=== PATIENT | female | born 1970 | race African-American/Black ===

== ENCOUNTER 2017-08-26 19:44 | Emergency (ER) | payer MEDICAID, OTHER ==
[~2017-08-26] VITALS: Ht 175.3 cm; Wt 163.3 kg
[2017-08-26 20:16] LABS: Urine RBC None Seen /hpf (0 - 4)
[2017-08-26 20:31] LABS: Urine Bilirubin Negative (Negative); Urine Blood Negative /uL (Negative); Urine Color Yellow (Yellow); Urine Glucose Normal (Normal); Urine Ketone Negative (Negative); Urine Mucus FEW (None Seen); Urine Nitrite Negative (Negative); Urine Squamous Epithelial Cell FEW /hpf (<5)
[2017-08-26 20:55] LABS: Basophils # (auto) 0.1 uL; Eosinophils # (auto) 0.1 uL; Hemoglobin 9.3 g/dL (12.2-16.2); Monocytes # (auto) 0.7 uL; White Blood Cell 6.5 10^3/uL (4.4-10.8)
[2017-08-26 20:57] LABS: Basophils % (auto) 1.6 % (0.0-2.0); Eosinophils % (auto) 2.2 % (0.0-7.0); Hematocrit 30.3 % (36.0-46.0); Lymphocytes # (auto) 2.6 uL; Lymphocytes % (auto) 40.3 % (10.0-50.0); Mean Corpuscular Hemoglobin 21.9 pg (28.0-32.0); Mean Corpuscular Hgb Conc. 30.6 g/dL (32.0-36.0); Mean Corpuscular Volume 71.6 fL (80.0-100.0); Monocytes % (auto) 10.4 % (0.0-12.0); Neutrophils # (auto) 2.9 uL; Neutrophils % (auto) 45.5 % (37.0-80.0); Platelet Count (auto) 350 10^3/uL (140-450); Red Cell Distribution Width 17.7 % (11.8-14.3)
[2017-08-26 21:09] LABS: Albumin 3.7 g/dL (3.4-5.0); Anion Gap 9 (5-15); Aspartate Aminotransferase 16 U/L (15-37); BUN/Creatinine Ratio 9.9; Blood Urea Nitrogen 7 mg/dL (7-18); Calcium 8.6 mg/dL (8.5-10.1); Carbon Dioxide 26 mmol/L (21-32); Chloride 110 mmol/L (98-107); GFR African American 113 mL/min; GFR Non-African American 93 mL/min; Glucose 86 mg/dL (74-106); INR 1.05 (0.9-1.15); Magnesium 2.2 mg/dL (1.6-2.6); Partial Thromboplastin Time 24.5 sec (22.64-33.71); Potassium 3.6 mmol/L (3.5-5.1); Prothrombin Time 11.4 sec (9.37-12.3); Sodium 145 mmol/L (136-145)
[2017-08-26 21:14] LABS: Alkaline Phosphatase 55 U/L (45-117); Bilirubin, Total 0.3 mg/dL (0.2-1.0); Total Protein 7.8 g/dL (6.4-8.2)
[2017-08-27 00:39] VITALS: BP 132/83
== END 2017-08-27 01:15 | disposition home or self-care (01) ==
LOC: ER 19:44
DX: R60.0 Localized edema (principal); Z90.49 Acquired absence of other specified parts of digestive tract; R00.2 Palpitations
CPT/HCPCS: 36415; 71010; 80053; 80307; 81001; 81025; 83735; 84484; 85025; 85610; 85730; 93005; 93970

== ENCOUNTER 2017-12-02 00:05 | Emergency (ER) | payer MEDICAID ==
[~2017-12-02] VITALS: Ht 175.3 cm; Wt 167.8 kg
[2017-12-02] VITALS (8 sets, daily range): BP systolic 105–168; BP diastolic 38–93
[2017-12-02 00:42] LABS: Basophils # (auto) 0.1 uL; Eosinophils # (auto) 0.1 uL; Hematocrit 25.5 % (36.0-46.0); Monocytes # (auto) 0.7 uL; Neutrophils # (auto) 3.1 uL; Red Blood Cells 3.96 10^6/uL (4.0-5.20); White Blood Cell 6.3 10^3/uL (4.4-10.8)
[2017-12-02 00:44] LABS: Basophils % (auto) 0.9 % (0.0-2.0); Eosinophils % (auto) 1.7 % (0.0-7.0); Hemoglobin 7.4 g/dL (12.2-16.2); Lymphocytes # (auto) 2.3 uL; Mean Corpuscular Hemoglobin 18.7 pg (28.0-32.0); Mean Corpuscular Hgb Conc. 29.1 g/dL (32.0-36.0); Mean Corpuscular Volume 64.2 fL (80.0-100.0); Monocytes % (auto) 11.2 % (0.0-12.0); Neutrophils % (auto) 49.2 % (37.0-80.0); Nucleated Red Blood Cells % 0.3 %; Platelet Count (auto) 356 10^3/uL (140-450); Red Cell Distribution Width 19.8 % (11.8-14.3)
[2017-12-02 01:07] LABS: Alanine Aminotransferase 16 U/L (13-56); Albumin 3.7 g/dL (3.4-5.0); Alkaline Phosphatase 62 U/L (45-117); Anion Gap 8 (5-15); Aspartate Aminotransferase 15 U/L (15-37); BUN/Creatinine Ratio 15.1; Bilirubin, Total 0.3 mg/dL (0.2-1.0); Blood Urea Nitrogen 11 mg/dL (7-18); Calcium 8.5 mg/dL (8.5-10.1); Carbon Dioxide 24 mmol/L (21-32); Chloride 107 mmol/L (98-107); GFR African American 109 mL/min; GFR Non-African American 90 mL/min; Glucose 95 mg/dL (74-106); Sodium 139 mmol/L (136-145)
[2017-12-02] MEDS ORDERED: SODIUM CHLORIDE 0.9% 1,000 ML IV ONE ×2 (05:30→07:08)
[2017-12-02 08:57] LABS: INR 1.04 (0.9-1.15); Partial Thromboplastin Time 22.8 sec (22.64-33.71); Prothrombin Time 11.3 sec (9.37-12.3)
[2017-12-02 09:36] LABS: Urine Bacteria FEW /hpf (None Seen); Urine Blood Negative /uL (Negative); Urine Specific Gravity 1.014 (1.001-1.035); Urine WBC 1 /hpf (0 - 5)
[2017-12-02 11:23] LABS: Basophils # (auto) 0.1 uL; Eosinophils # (auto) 0.1 uL; Hemoglobin 8.2 g/dL (12.2-16.2); White Blood Cell 5.1 10^3/uL (4.4-10.8)
[2017-12-02 11:25] LABS: Basophils % (auto) 1.8 % (0.0-2.0); Eosinophils % (auto) 1.3 % (0.0-7.0); Hematocrit 27.8 % (36.0-46.0); Lymphocytes # (auto) 1.6 uL; Lymphocytes % (auto) 32.4 % (10.0-50.0); Mean Corpuscular Hemoglobin 19.9 pg (28.0-32.0); Mean Corpuscular Hgb Conc. 29.3 g/dL (32.0-36.0); Monocytes # (auto) 0.7 uL; Monocytes % (auto) 13.1 % (0.0-12.0); Neutrophils # (auto) 2.6 uL; Neutrophils % (auto) 51.4 % (37.0-80.0); Platelet Count (auto) 322 10^3/uL (140-450); Red Blood Cells 4.09 10^6/uL (4.0-5.20)
[2017-12-02 11:26] LABS: Red Cell Distribution Width 22.4 % (11.8-14.3)
== END 2017-12-02 11:44 | disposition home or self-care (01) ==
LOC: ER 00:11
DX: N92.0 Excessive and frequent menstruation with regular cycle (principal); D50.0 Iron deficiency anemia secondary to blood loss (chronic); D25.1 Intramural leiomyoma of uterus; E78.5 Hyperlipidemia, unspecified; N39.0 Urinary tract infection, site not specified; E66.01 Morbid (severe) obesity due to excess calories; Z98.84 Bariatric surgery status; Z68.43 Body mass index [BMI] 50.0-59.9, adult; Z90.49 Acquired absence of other specified parts of digestive tract
CPT/HCPCS: 36415; 71046; 76856; 80053; 81001; 83735; 84443; 84484; 84702; 85025; 85610; 85730; 86850; 86900; 86901; 86920; 93005; 96360; 96361; 99285; J7030; J7040; P9016; 36430